=== PATIENT | female | born 1940 | race Caucasian/White ===

== ENCOUNTER 2017-02-21 17:45 | Emergency (ER) | payer MEDICARE, MEDICAID ==
--- NOTE | 2017-02-21 18:22 | ED Physician Chart ---
Chief Complaint/HPI - Patient Information Date Seen:: 02/21/17 Time Seen:: 18:18 Chief Complaint:: cough History of Present Illness:: pt sent from [place] for uri sx w cough x 1 wk. much worse today w feeling sob. nonproductive cough. low grade fever noted today. no edema. no leg pains. hears crackles in lungs w deep breathing. no cp. Allergies:: Allergies Allergy/AdvReac Type Severity Reaction Status Date / Time codeine Allergy Verified 06/15/16 17:17 erythromycin base Allergy Verified 06/15/16 17:18 hydrocodone bitartrate Allergy Verified 06/15/16 17:08 [From Vicodin] SULFA Allergy Unknown Uncoded 06/15/16 17:07 Vitals:: Vital Signs - 8 hr 02/21/17 17:51 Temp 97.7 F HR 82 RR 17 BP 121/60 O2 Sat % 95 Historian:: Patient Review of Systems - Review of Systems General/Constitutional: No fever, No chills, No weight loss, No weakness, No diaphoresis, No edema, No loss of appetite Skin: No skin lesions, No rash, No bruising Head: No headache, No light-headedness Eyes: No loss of vision, No pain, No diplopia ENT: No earache, No nasal drainage, No sore throat, No tinnitus Neck: No neck pain, No swelling, No thyromegaly, No stiffness, No mass noted Cardio Vascular: No chest pain, No palpitations, No PND, No orthopnea, No edema Pulmonary: SOB, Cough, No sputum, No wheezing GI: No nausea, No vomiting, No diarrhea, No pain, No melena, No hematochezia, No constipation, No hematemesis G/U: No dysuria, No frequency, No hematuria Musculoskeletal: No bone or joint pain, No back pain, No muscle pain Endocrine: No polyuria, No polydipsia Psychiatric: No prior psych history, No depression, No anxiety, No suicidal ideation Hematopoietic: No bruising, No lymphadenopathy Allergic/Immuno: No urticaria, No angioedema Neurological: No syncope, No focal symptoms, No weakness, No paresthesia, No headache, No seizure, No dizziness, No confusion, No vertigo Past Medical History - Past Medical History Past Medical History: HTN, Arthritis Surgical History: other (colostomy, martinez) Medication: Reviewed Family Medical History - Family Member Mother History Unknown: Yes Ethnicity: Unknown Living Status: Father History Unknown: Yes Ethnicity: Non- Living Status: Physical Exam - Physical Examination General/Constitutional: Awake, Well-developed, well-nourished, Alert, No distress, GCS 15, Non-toxic appearing, Ambulatory Head: Atraumatic Eyes: Lids, conjuctiva normal, PERRL, EOMI Skin: Nl inspection, No rash, No skin lesions, No ecchymosis, Well hydrated, No lymphadenopathy ENMT: External ears, nose nl, Nasal exam nl, Lips, teeth, gums nl Neck: Nontender, Full ROM w/o pain, No JVD, No nuchal rigidity, No bruit, No mass, No stridor Respiratory: Nl effort/Exclusion, Clear to Auscultation, No Wheeze/Rhonchi/Rales Other Respiratory comments:: lungs mostly clear...slt rales. speaking easily without sev dyspnea. Cardio Vascular: RRR, No murmur, gallop, rubs, NL S1 S2 GI: No tenderness/rebounding/guarding, No organomegaly, No hernia, Normal BS's, Nondistended, No mass/bruits, No McBurney tenderness : No CVA tenderness Extremities: No tenderness or effusion, Full ROM, normal strength in all extremities, No edema, Normal digits & nails Neuro/Psych: Alert/oriented, DTR's symmetric, Normal sensory exam, Normal motor strength, Judgement/insight normal, Mood normal, Normal gait, No focal deficits Misc: normal gait, Normal back, No paraspinal tenderness Labs/Radiology/EKG Results - Lab Results Results: Laboratory Tests 02/21/17 02/21/17 02/21/17 19:50 19:50 19:50 WBC 9.1 RBC 3.18 L Hgb 9.5 L Hct 28.5 L MCV 89.4 MCH 29.7 MCHC Differential 33.2 RDW 14.2 Plt Count 297 D MPV 7.1 Neutrophils % 80.3 H Lymphocytes % 13.1 L Monocytes % 5.2 Eosinophils % 0.3 Basophils % 1.1 Sodium 133 L Potassium 3.8 Chloride 100 Carbon Dioxide 23.7 Anion Gap 13.1 BUN 42 H Creatinine 2.5 H Est GFR ( Amer) TNP Est GFR (Non-Af Amer) TNP BUN/Creatinine Ratio 16.8 Glucose 110 H Whole Bld Lactic Acid 0.96 Calcium 9.4 Total Bilirubin 0.5 AST 23 ALT 22 Alkaline Phosphatase 52 Total Protein 8.0 Albumin 3.8 Globulin 4.2 Albumin/Globulin Ratio 0.9 L - Radiology Results Results: cxr nad...x ?slt inc in interstitial markings - EKG Interpretations EKG Time:: 18:50 Rate & Rhythm: nsr [place]ley: -42 Intervals: [id number] Comments:: lvh w repol delay. ED Septic Shock - . Is Septic Shock (SBP<90, OR Lactate>4 mmol\L) present?: No - <6hrs of presentation: Vital Signs: Vital Signs - 8 hr 02/21/17 17:51 Temp 97.7 F HR 82 RR 17 BP 121/60 O2 Sat % 95 Reassessment (Disposition) - Reassessment Reassessment:: case dw dr garcia...says pt can go back to [place] and he will call her abx orders over there. pt has appeared to be stable in ed here. not sob. no major cough or distress. has received abx and dr fara boles cont in [place]. Reassessment Condition:: Unchanged - Diagnosis Diagnosis:: 1 bronchitis 2 ckd 3 anemia - Aftercare/Follow up Instructions Aftercare/Follow-Up Instructions:: Counseled pt regarding lab results/diagnosis & need follow up - Patient Disposition Discharge/Transfer:: Residential/Boarding Care Condition at Disposition:: Improved
[2017-02-21 19:06] LABS: % BASOPHILS 1.1 % (0.0-2.0); % EOSINOPHILS 0.3 % (0.0-5.0); % LYMPHOCYTES 13.1 % (20.0-50.0); % MONOCYTES 5.2 % (2.0-10.0); % NEUTROPHILS 80.3 % (40.0-80.0); HEMATOCRIT 28.5 % (35.0-45.0); HEMOGLOBIN 9.5 gm/dL (11.7-16.1); MEAN CELL VOLUME 89.4 fl (81-100); MEAN CORPUSCULAR HEMOGLOBIN 29.7 pg (27.0-31.0); MEAN CORPUSCULAR HGB CONC 33.2 pg (28.0-36.0); MEAN PLATELET VOLUME 7.1 fl; NEUTROPHILE ABSOLUTE 7.3 Th/cmm (1.8-8.0); RED BLOOD COUNT 3.18 Mil/cmm (3.80-5.20); RED CELL DISTRIBUTION WIDTH 14.2 % (11.5-20.0); WHITE BLOOD COUNT 9.1 Th/cmm (4.8-10.8)
[2017-02-21 20:26] LABS: PLATELET COUNT 297 Th/cmm (150-400)
[2017-02-21 20:29] LABS: ALB/GLOB RATIO 0.9 (1.0-1.8); ALKALINE PHOSPHATASE 52 U/L (34-104); ANION GAP 13.1 (7.0-16.0); BILIRUBIN,TOTAL 0.5 mg/dL (0.3-1.0); BUN - UREA NITROGEN 42 mg/dL (7-25); BUN/CREATININE RATIO 16.8; CALCIUM SERUM 9.4 mg/dL (8.6-10.3); CARBON DIOXIDE 23.7 mEq/L (21.0-31.0); CHLORIDE 100 mEq/L (98-107); CREATININE - SERUM 2.5 mg/dL (0.6-1.2); GLUCOSE 110 mg/dL (70-105); POTASSIUM SERUM 3.8 mEq/L (3.5-5.1); SGOT 23 U/L (13-39); SGPT/ALT 22 U/L (7-52); SODIUM SERUM 133 mEq/L (136-145)
[2017-02-21] MEDS ORDERED: Albuterol Nebulizer 2.5mg/3mL HHN STA (20:54)
[2017-02-21] MEDS ORDERED: Levofloxacin 500mg/100mL 500 MG/100 ML BAG IV ONE ×2 (20:55→21:38)
[2017-02-21] MEDS ORDERED: Albuterol Nebulizer 2.5mg/3mL HHN ONE (21:48)
--- NOTE | 2017-02-22 11:41 | Diagnostic Imaging Report ---
Portable chest x-ray HISTORY: Cough The overall heart size is difficult to assess with portable technique and a poor inspiration. Atherosclerotic calcification seen in the aortic arch. No acute focal pulmonary processes. Degenerative changes seen to the spine. IMPRESSION: 1. No acute focal pulmonary processes 2. Atherosclerotic vascular changes
== END 2017-02-21 23:20 ==
LOC: ER 17:45
DX: J40 Bronchitis, not specified as acute or chronic (principal); I12.9 Hypertensive chronic kidney disease with stage 1 through stage 4 chronic kidney disease, or unspecified chronic kidney disease; N18.9 Chronic kidney disease, unspecified; D64.9 Anemia, unspecified; Z88.6 Allergy status to analgesic agent; Z88.1 Allergy status to other antibiotic agents; Z88.2 Allergy status to sulfonamides
CPT/HCPCS: 99285; 96365; 94640; 93005; 71010; 84484; 83880; 36415; 83605; 85025; 80053; 87081; 87040 ×2; J1956; J7613

== ENCOUNTER 2019-02-19 18:01 | Inpatient (IN) | payer MEDICARE, MEDICAID ==
--- NOTE | 2019-02-19 18:33 | ED Physician Chart ---
ED Chief Complaint/HPI - Patient Information Date Seen:: 02/19/19 Time Seen:: 18:15 Chief Complaint:: Fever History of Present Illness:: onset x 3 days of fever, congestion, S/T, and productive cough; pt denies trauma , H/As, neck pain, C/P, SOB, Abd. Pain, A/N/V/D/C, chills, or urinary s/s Allergies:: Allergies Allergy/AdvReac Type Severity Reaction Status Date / Time codeine Allergy Verified 02/19/19 18:16 erythromycin base Allergy Verified 02/19/19 18:16 hydrocodone bitartrate Allergy Verified 02/19/19 18:16 [From Vicodin] Sulfa (Sulfonamide Allergy Verified 02/19/19 18:16 Antibiotics) Historian:: Patient, EMS Review:: Nurse's Note Reviewed, Old Chart Reviewed, EMS run form Reviewed <Ken Loya - Last Filed: 02/19/19 18:27> - Patient Information Allergies:: Allergies Allergy/AdvReac Type Severity Reaction Status Date / Time codeine Allergy Verified 02/19/19 18:16 erythromycin base Allergy Verified 02/19/19 18:16 hydrocodone bitartrate Allergy Verified 02/19/19 18:16 [From Vicodin] Sulfa (Sulfonamide Allergy Verified 02/19/19 18:16 Antibiotics) Vitals:: Vital Signs - 8 hr 02/19/19 02/19/19 18:32 19:13 Temp 99.1 F 98.7 F HR 70 75 RR 18 16 BP 115/58 134/52 O2 Sat % 92 95 <Ashlee Harper - Last Filed: 02/19/19 20:43> ED Review of Systems - Review of Systems General/Constitutional: Fever, No chills, No weight loss, No weakness, No diaphoresis, No edema, No loss of appetite Skin: No skin lesions, No rash, No bruising Head: No headache, No light-headedness Eyes: No loss of vision, No pain, No diplopia ENT: No earache, Nasal drainage, Sore throat, No tinnitus Neck: No neck pain, No swelling, No thyromegaly, No stiffness, No mass noted Cardio Vascular: No chest pain, No palpitations, No PND, No orthopnea, No edema Pulmonary: No SOB, Cough, No sputum, No wheezing GI: No nausea, No vomiting, No diarrhea, No pain, No melena, No hematochezia, No constipation, No hematemesis G/U: No dysuria, No frequency, No hematuria, No nacturia Medical Insurance Biller: No vaginal discharge, No abnormal vaginal bleed, No contraction Musculoskeletal: No bone or joint pain, No back pain, No muscle pain Endocrine: No polyuria, No polydipsia Psychiatric: No prior psych history, No depression, No anxiety, No suicidal ideation, No homicidal ideation, No auditory hallucination, No visual hallucination Hematopoietic: No bruising, No lymphadenopathy Allergic/Immuno: No urticaria, No angioedema Neurological: No syncope, No focal symptoms, No weakness, No paresthesia, No headache, No seizure, No dizziness, Confusion, No vertigo <Ken Loya - Last Filed: 02/19/19 18:27> ED Past Medical History - Past Medical History Obtainable: Yes Past Medical History: HTN, DM, CAD, CHF, Dyslipidemia, PUD/GERD, Arthritis, Dementia Family History: Diabetes Melitus, HTN Social History: Non Smoker, No Alcohol, No Drug Use, Surgical History: None Psychiatricy History: None Medication: Reviewed <Ken Loya - Last Filed: 02/19/19 18:27> Family Medical History - Family Member Mother History Unknown: Yes Ethnicity: Unknown Living Status: Father History Unknown: Yes Ethnicity: Non- Living Status: Hx Family Coronary Artery Disease: Yes <Ken Loya - Last Filed: 02/19/19 18:27> ED Physical Exam - Physical Examination General/Constitutional: Awake, Well-developed, well-nourished, Alert, No distress, GCS 15, Non-toxic appearing, Ambulatory Head: Atraumatic Eyes: Lids, conjuctiva normal, PERRL, EOMI Skin: Nl inspection, No rash, No skin lesions, No ecchymosis, Well hydrated, No lymphadenopathy ENMT: External ears, nose nl, TM canals nl, Nasal exam nl, Lips, teeth, gums nl , Tonsils nl Other ENMT comments:: Pharynx: Injected; + Nasal Congestion Neck: Nontender, Full ROM w/o pain, No JVD, No nuchal rigidity, No bruit, No mass, No stridor Respiratory: Nl effort/Exclusion Other Respiratory comments:: Lungs: + Rales and Rhonchi Cardio Vascular: RRR, No murmur, gallop, rubs, NL S1 S2, Carotid/Femoral/Distal pulses equal bilaterally GI: No tenderness/rebounding/guarding, No organomegaly, No hernia, Normal BS's, Nondistended, No mass/bruits, No McBurney tenderness : No CVA tenderness Extremities: No tenderness or effusion, Full ROM, normal strength in all extremities, No edema, Normal digits & nails Neuro/Psych: Alert/oriented, DTR's symmetric, Normal sensory exam, Normal motor strength, Judgement/insight normal, Mood normal, Normal gait, No focal deficits Misc: Normal back, No paraspinal tenderness <Ken Loya - Last Filed: 02/19/19 18:27> ED Labs/Radiology/EKG Results - Lab Results Results: Laboratory Tests 02/19/19 02/19/19 02/19/19 17:20 18:59 18:59 WBC 6.7 RBC 3.33 L Hgb 10.0 L Hct 29.2 L MCV 87.8 MCH 30.0 MCHC Differential 34.1 RDW 15.3 Plt Count 234 MPV 6.1 Neutrophils % 78.7 Lymphocytes % 17.1 L Monocytes % 3.7 Eosinophils % 0.1 Basophils % 0.4 PT 10.4 INR 1.00 PTT (Actin FS) 33.5 Sodium Potassium Chloride Carbon Dioxide Anion Gap BUN Creatinine Est GFR ( Amer) Est GFR (Non-Af Amer) BUN/Creatinine Ratio Glucose Whole Bld Lactic Acid Calcium Total Bilirubin AST ALT Alkaline Phosphatase Creatine Kinase Troponin I Total Protein Albumin Globulin Albumin/Globulin Ratio Urine Source [place] Urine Color YELLOW Urine Clarity HAZY Urine pH 5.5 Ur Specific [place] <= 1.005 Urine Protein TRACE Urine Glucose (UA) NEGATIVE Urine Ketones NEGATIVE Urine Blood SMALL H Urine Nitrate POSITIVE H Urine Bilirubin NEGATIVE Urine Urobilinogen 0.2 Ur Leukocyte Esterase MODERATE H Urine RBC 2-5 Urine WBC 6-10 H Ur Epithelial Cells MODERATE Urine Bacteria 3+ H 02/19/19 02/19/19 18:59 18:59 WBC RBC Hgb Hct MCV MCH MCHC Differential RDW Plt Count MPV Neutrophils % Lymphocytes % Monocytes % Eosinophils % Basophils % PT INR PTT (Actin FS) Sodium 132 L Potassium 4.0 Chloride 100 Carbon Dioxide 21.5 Anion Gap 14.5 BUN 51 H Creatinine 2.3 H Est GFR ( Amer) TNP Est GFR (Non-Af Amer) TNP BUN/Creatinine Ratio 22.2 Glucose 239 H Whole Bld Lactic Acid 1.51 Calcium 9.2 Total Bilirubin 0.7 AST 14 ALT 18 Alkaline Phosphatase 106 H Creatine Kinase 44 Troponin I 0.01 Total Protein 6.8 Albumin 3.8 Globulin 3.0 Albumin/Globulin Ratio 1.3 Urine Source Urine Color Urine Clarity Urine pH Ur Specific [place] Urine Protein Urine Glucose (UA) Urine Ketones Urine Blood Urine Nitrate Urine Bilirubin Urine Urobilinogen Ur Leukocyte Esterase Urine RBC Urine WBC Ur Epithelial Cells Urine Bacteria <Ashlee Harper - Last Filed: 02/19/19 20:43> ED Assessment - Assessment General Assessment: uti fever pt admitted under DR EDWARDS <Ashlee Harper - Last Filed: 02/19/19 20:43> ED Septic Shock - . Is Septic Shock (SBP<90, OR Lactate>4 mmol\L) present?: No <Ken Loya - Last Filed: 02/19/19 18:27> - . Is Septic Shock (SBP<90, OR Lactate>4 mmol\L) present?: No - <6hrs of presentation: Vital Signs: Vital Signs - 8 hr 02/19/19 02/19/19 18:32 19:13 Temp 99.1 F 98.7 F HR 70 75 RR 18 16 BP 115/58 134/52 O2 Sat % 92 95 <Ashlee Harper - Last Filed: 02/19/19 20:43> ED Reassessment (Disposition) - Reassessment Reassessment Condition:: Improved - Diagnosis Diagnosis:: Fever; Sore Throat; Pharyngitis; Congestion <Ken Loya - Last Filed: 02/19/19 18:27> - Reassessment Reassessment:: UTI FEVER - Patient Disposition Discharge/Transfer:: Acute Care w/in this hosp Admitted to:: Med/Surg Condition at Disposition:: Stable <Ashlee Harper - Last Filed: 02/19/19 20:43>
[2019-02-19] MEDS ORDERED: cefTRIAXone 1 GM in Sodium Chloride 0.9% 50 ML IV ONE (18:34)
[2019-02-19 19:01] LABS: % BASOPHILS 0.4 % (0.0-2.0); % EOSINOPHILS 0.1 % (0.0-5.0); % LYMPHOCYTES 17.1 % (20.0-50.0); % MONOCYTES 3.7 % (2.0-10.0); % NEUTROPHILS 78.7 % (40.0-80.0); HEMATOCRIT 29.2 % (41.0-60); LYMPHOCYTE ABSOLUTE 1.1 Th/cmm (1.5-3.0); MEAN CELL VOLUME 87.8 fl (81-100); MEAN CORPUSCULAR HGB CONC 34.1 pg (28.0-36.0); MONOCYTE ABSOLUTE 0.2 Th/cmm (0.3-1.0); NEUTROPHILE ABSOLUTE 5.4 Th/cmm (1.8-8.0); PLATELET COUNT 234 Th/cmm (150-400); RED BLOOD COUNT 3.33 Mil/cmm (3.80-5.20); RED CELL DISTRIBUTION WIDTH 15.3 % (11.5-20.0); WHITE BLOOD COUNT 6.7 Th/cmm (4.8-10.8)
[2019-02-19 19:15] LABS: ALB/GLOB RATIO 1.3 (1.0-1.8); ALBUMIN 3.8 gm/dL (3.7-5.3); ALKALINE PHOSPHATASE 106 U/L (34-104); ANION GAP 14.5 (7.0-16.0); BILIRUBIN,TOTAL 0.7 mg/dL (0.3-1.0); BUN - UREA NITROGEN 51 mg/dL (7-25); CALCIUM SERUM 9.2 mg/dL (8.6-10.3); CARBON DIOXIDE 21.5 mEq/L (21.0-31.0); CHLORIDE 100 mEq/L (98-107); CREATININE - SERUM 2.3 mg/dL (0.6-1.2); CREATININE KINASE 44 U/L (30-223); GLUCOSE 239 mg/dL (70-105); SGOT 14 U/L (13-39); SGPT/ALT 18 U/L (7-52); SODIUM SERUM 132 mEq/L (136-145); TOTAL PROTEIN,SERUM 6.8 gm/dL (6.0-8.3)
[2019-02-19 19:27] LABS: URINE SOURCE MIDSTREAM
[2019-02-19 19:29] LABS: URINE BILIRUBIN NEGATIVE (NEGATIVE); URINE BLOOD SMALL (NEGATIVE); URINE GLUCOSE (UA) NEGATIVE (NEGATIVE); URINE KETONE NEGATIVE (NEGATIVE); URINE LEUKOCYTE ESTERASE MODERATE (NEGATIVE); URINE MICROSCOPIC INDICATED? YES; URINE NITRATE POSITIVE (NEGATIVE); URINE PH 5.5 (4.6 - 8.0); URINE PROTEIN TRACE mg/dL (NEGATIVE); URINE UROBILINOGEN 0.2 E.U./dL (0.2 - 1.0)
[2019-02-19 19:48] LABS: URINE CLARITY HAZY (CLEAR); URINE COLOR YELLOW
[2019-02-19 19:52] LABS: URINE BACTERIA 3+ /hpf (NONE SEEN); URINE EPITHELIAL CELLS MODERATE /lpf (FEW)
[2019-02-19] MEDS ORDERED: Gentamicin 80 mg/2mL Vial ONE (22:32)
[2019-02-19] MEDS: D5-0.45NS 1,000 ML IV SCH (22:34)
[2019-02-19] MEDS: INSULIN LISPRO 100 UNIT/ML VIAL SUBQ SCH (22:35)
[2019-02-20 06:05] LABS: A1C 6.9 % (4.8-5.6)
[2019-02-20] MEDS ORDERED: Gentamicin 80 mg/2mL Vial ONE (06:25)
[2019-02-20] MEDS: INSULIN LISPRO 100 UNIT/ML VIAL SUBQ SCH ×4 (07:58→20:31)
--- NOTE | 2019-02-20 08:41 | Diagnostic Imaging Report ---
CHEST X-RAY: AP view INDICATION: pain COMPARISON: 08/30/2017 FINDINGS: There is elevation of the right hemidiaphragm. Increased interstitial lung markings are noted. Mild cardiomegaly is noted with atherosclerosis. Degenerative changes of the spine are noted. There may have been old trauma to the left distal clavicle. IMPRESSION: Increased interstitial lung markings which may be chronic, however, interstitial infiltrates cannot be completely excluded please correlate clinically. Mild cardiomegaly and atherosclerosis.
[2019-02-20] MEDS ORDERED: Maalox 30 mL Cup PO PRN (09:31)
[2019-02-20] MEDS: Aspirin 81mg Chewable Tab PO SCH (10:23)
--- NOTE | 2019-02-20 10:28 | History & Physical ---
ADMIT DATE: PATIENT IDENTIFICATION: This is a 78-year-old female. CHIEF COMPLAINT: High-grade fever and chills with excessive sweating. HISTORY OF PRESENT ILLNESS: A 78-year-old female who resides at a halfway, has a history of type 2 diabetes, hypertension, chronic kidney disease, history of colostomy, history of previous bladder repair, psychotic disorder, has been followed by myself and psychiatrist at [facility], brought into the Emergency Room yesterday for evaluation of high-grade fever with chills and diaphoresis. The patient was worked up in the Emergency Room and noted to have urinary tract infection. The patient was also noted to have significant amount of sediments in her urine. The patient was advised to be admitted in the hospital for further evaluation and management. The patient stated that she is feeling a little better, but still feeling lethargic, more than usual. PAST MEDICAL HISTORY: Remarkable for: 1. Diabetes mellitus. 2. Hypertension. 3. Hyperlipidemia. 4. Chronic kidney disease. 5. DJD. 6. Status post colostomy. 7. History of recurrent urinary tract infection. 8. Neurogenic bladder. MEDICATIONS: Medications at the time of transfer has been reviewed and reconciled appropriately. ALLERGIES: The patient is allergic to CODEINE, ERYTHROMYCIN, HYDROCODONE, and SULFA. SOCIAL HISTORY: The patient resides in a halfway. The patient has no history of smoking cigarette, alcohol, or drug use. FAMILY MEDICAL HISTORY: Remarkable for diabetes. REVIEW OF SYSTEMS: The patient currently denies any headache, blurred vision, double vision, dysphagia, odynophagia, runny nose, stuffy nose, fevers or chills. No history of any abdominal pain. No history of any nausea, vomiting, diarrhea, dysuria, hematuria, hematochezia, melena. No history of any seizure or syncopal episode. PHYSICAL EXAMINATION: GENERAL: The patient is alert, awake, oriented, lying in the bed without any acute distress. VITAL SIGNS: T-max is 101.5, pulse is 100, respiratory rate is 18, blood pressure 140/70. HEENT: Normocephalic, atraumatic. Extraocular muscles are intact. Tongue was pink and coated. Poor dentition noted. Upper and lower dentures noted. NECK: Supple, no JVD, no hepatojugular reflux. No lymphadenopathy, no thyromegaly, no carotid bruit. HEART: Both heart sounds are regular. No S3, no S4, no murmur. CHEST: Lung equal in expansion, no expiratory wheezing. ABDOMEN: Soft. No guarding, no rigidity. Bowel sounds are regular. No palpable mass. Well-functioning colostomy in the left lower quadrant of the abdomen noted. EXTREMITIES: No edema, no cyanosis, no clubbing. Peripheral pulses are +1. No calf tenderness noted. NEUROLOGIC: Alert, awake and oriented to time, place, person. 2-12 cranial nerves are intact. Power in upper or lower extremities 5-. Sensory to touch intact. Babinskis in both toes are going down. No cerebral sign. AVAILABLE DIAGNOSTIC DATA: White count of 6.7, hemoglobin 10.0, platelet count of 234. Sodium 132, potassium 4.0, chloride 100, CO2 21.5, BUN and creatinine 51 and 2.3, glucose of 239, alkaline phos of 106. Urinalysis: Small blood, positive nitrites, positive leukoesterase, 6-10 wbc's, 3+ bacteria noted. Chest x-ray remarkable for no infiltrate, no congestion, mild cardiomegaly with atherosclerosis noted. CLINICAL IMPRESSION: 1. High-grade fever associated with chills and diaphoresis. Workup in the Emergency Room has revealed the patient has urinary tract infection. The patient has a chronic indwelling Tellez catheter for neurogenic bladder. The patient has most likely complicated urinary tract infection associated with Tellez catheter. In the view of her previous urinary tract infection, the patient needs to rule out for pyelonephritis. 2. [id number] kidney disease. 3. Diabetes mellitus. 4. Anemia of chronic illness. 5. Hypertension. 6. Hyperlipidemia. 7. Degenerative joint disease. 8. Psychotic disorder. 9. MULTIPLE MEDICATION ALLERGIES. 10. Neurogenic bladder. 11. Status post colostomy. PLAN: 1. Admit this patient to Med/Surg floor. 2. IV antibiotic with dual coverage. 3. Blood cultures. 4. Await for culture and sensitivity. 5. Renal ultrasound. 6. Infectious Disease consultation. 7. Appropriate home medicine reconciliation. 8. Diabetes management. 9. Symptoms management. 10. Medication management. 11. Follow category consultant's recommendation. 12. Tellez catheter care. 13. Colostomy care. 14. Care plan reviewed and discussed with staff. [facility]# [id number]
[2019-02-20] MEDS ORDERED: Non-Formulary Item 1 EA (Omeprazole [Omeprazole] 20 MG) PO SCH (11:30)
[2019-02-20] MEDS: Ferrous Sulfate 325 MG TAB PO SCH ×2 (13:12→20:19)
[2019-02-20] MEDS: Polyvinyl Alcohol Ophth Soln 15 mL Bottle EACH EYE SCH ×2 (13:12→20:26)
--- NOTE | 2019-02-20 14:26 | Diagnostic Imaging Report ---
Renal ultrasound HISTORY: pyelonephritis COMPARISON: CT abdomen and pelvis on 01/28/2015 and renal ultrasound on 01/27/2015 Technique: Sonography of the kidneys and urinary bladder was performed in multiple planes. FINDINGS: Exam is limited to body habitus. The right kidney measures 10.3 x 4.7 cm. The renal margins are not well-defined however no obvious focal lesions or hydronephrosis. The left kidney measures 10.1 x 4.6 cm. The renal margins are well-defined, however no obvious focal lesions are hydronephrosis. Tellez catheter is seen within the urinary bladder. There is subsequent complete voiding. IMPRESSION: Markedly limited exam due to body habitus. No evidence of hydronephrosis. Please also correlate with UA findings, given clinical history.
[2019-02-20] MEDS: D5-0.45NS 1,000 ML IV SCH (15:17)
[2019-02-20] MEDS: Timolol 0.25% Ophth Soln 5 mL Bottle EACH EYE SCH (16:42)
[2019-02-20] MEDS ORDERED: TIZANIDINE HCL 2 MG PO SCH (17:00)
[2019-02-20] MEDS: cefTRIAXone 1 GM in Sodium Chloride 0.9% 50 ML IV SCH (17:14)
[2019-02-20] MEDS: Atorvastatin Calcium 10 MG TAB PO SCH (20:20)
[2019-02-20] MEDS ORDERED: Non-Formulary Item 1 EA (Melatonin [Melatonin] 3 MG) PO SCH (21:00)
[2019-02-20] MEDS ORDERED: BISACODYL 5 MG PO SCH (21:00)
[2019-02-20 21:49] VITALS: BP 120/56
[2019-02-21] MEDS: D5-0.45NS 1,000 ML IV SCH ×2 (05:04→20:55)
[2019-02-21 05:34] LABS: HEMATOCRIT 28.6 % (41.0-60); HEMOGLOBIN 9.6 gm/dL (12-16); LYMPHOCYTE ABSOLUTE 0.3 Th/cmm (1.5-3.0); MEAN CELL VOLUME 88.2 fl (81-100); MEAN CORPUSCULAR HEMOGLOBIN 29.7 pg (27.0-31.0); MEAN CORPUSCULAR HGB CONC 33.7 pg (28.0-36.0); MONOCYTE ABSOLUTE 0.2 Th/cmm (0.3-1.0); NEUTROPHILE ABSOLUTE 5.3 Th/cmm (1.8-8.0); PLATELET COUNT 182 Th/cmm (150-400); RED BLOOD COUNT 3.24 Mil/cmm (3.80-5.20); RED CELL DISTRIBUTION WIDTH 15.2 % (11.5-20.0); WHITE BLOOD COUNT 5.8 Th/cmm (4.8-10.8)
[2019-02-21 05:52] LABS: ALB/GLOB RATIO 1.2 (1.0-1.8); ALBUMIN 3.4 gm/dL (3.7-5.3); ALKALINE PHOSPHATASE 99 U/L (34-104); ANION GAP 12.8 (7.0-16.0); BILIRUBIN,TOTAL 0.5 mg/dL (0.3-1.0); BUN - UREA NITROGEN 43 mg/dL (7-25); CALCIUM SERUM 8.9 mg/dL (8.6-10.3); CARBON DIOXIDE 21.6 mEq/L (21.0-31.0); CHLORIDE 103 mEq/L (98-107); CREATININE - SERUM 2.3 mg/dL (0.6-1.2); GLUCOSE 311 mg/dL (70-105); POTASSIUM SERUM 4.4 mEq/L (3.5-5.1); SGOT 20 U/L (13-39); SGPT/ALT 27 U/L (7-52); SODIUM SERUM 133 mEq/L (136-145); TOTAL PROTEIN,SERUM 6.2 gm/dL (6.0-8.3)
[2019-02-21 06:18] LABS: BAND NEUTROPHILE 0 % (0-10); NEUTROPHILS 91 % (40-80)
[2019-02-21 06:19] LABS: BASOPHIL 0 % (0-3); EOSINOPHIL 0 % (0-5); LYMPHOCYTE 7 % (20-50); MONOCYTE 2 % (2-10); PLATELET ESTIMATE ADEQUATE (NORMAL)
[2019-02-21] MEDS: INSULIN LISPRO 100 UNIT/ML VIAL SUBQ SCH ×4 (06:53→20:46)
[2019-02-21] MEDS: Polyvinyl Alcohol Ophth Soln 15 mL Bottle EACH EYE SCH ×3 (08:14→20:44)
[2019-02-21] MEDS: Pantoprazole 40 mg EC Tab PO SCH (08:15)
[2019-02-21] MEDS: Aspirin 81mg Chewable Tab PO SCH (08:15)
[2019-02-21] MEDS: Ferrous Sulfate 325 MG TAB PO SCH ×3 (08:15→20:43)
[2019-02-21] MEDS: Timolol 0.25% Ophth Soln 5 mL Bottle EACH EYE SCH ×2 (08:25→17:36)
[2019-02-21] MEDS ORDERED: SITAGLIPTIN PHOSPHATE 25 MG PO SCH (09:00)
[2019-02-21] MEDS ORDERED: Gentamicin 160 MG in Sodium Chloride 0.9% 100 ML IV ONE (11:00)
--- NOTE | 2019-02-21 16:39 | Progress Notes ---
DATE: 02/21/2019 IDENTIFICATION: A 78-year-old female. SUBJECTIVE: The patient seen and examined. The patient complained of left shoulder pain and feeling cold. The patient denies any chest pain, shortness of breath, palpitation. Still has some dysuria at times. Denies any seizure or syncopal episode. PHYSICAL EXAMINATION: VITAL SIGNS: Temperature 98, pulse is 76, respiratory rate 18, and blood pressure 126/74. HEENT: No facial asymmetry. Upper and lower dentures noted. NECK: Supple, no JVD. HEART: Regular. CHEST: Lungs equal in expansion, no expiratory wheezing. ABDOMEN: Soft, well-functioning colostomy in the left lower quadrant noted. Bowel sounds are present. EXTREMITIES: No edema. AVAILABLE DIAGNOSTIC DATA: BUN and creatinine are 43 and 2.3. White count of 5.8, hemoglobin 9.6, platelet count of 182. Blood cultures no growth for the next 24 hours. MRSA is negative. CLINICAL IMPRESSION: 1. Complicated urinary tract infection. 2. Fever, resolved. 3. Chronic kidney disease. 4. Diabetes mellitus. 5. Hypertension. 6. Glaucoma. 7. Degenerative joint disease. 8. Left shoulder pain secondary to rotator cuff tendonitis. 9. Psychotic disorder. 10. Glaucoma. PLAN: 1. IV antibiotic. 2. ID consult. 3. p.r.n. naproxen. 4. Monitor blood sugar. 5. Monitor blood pressure. 6. General nursing care. 7. Follow lab. 8. Follow workers compensation consultant's recommendation. 9. Start physical therapy. 10. Continue other medication as prescribed. 11. The patient has poor IV access. We will proceed with PICC line insertion. 12. Care plan reviewed with RN. JOB# [id number]
[2019-02-21] MEDS: cefTRIAXone 1 GM in Sodium Chloride 0.9% 50 ML IV SCH (17:42)
[2019-02-21] MEDS: Atorvastatin Calcium 10 MG TAB PO SCH (20:44)
[2019-02-22 05:12] LABS: % EOSINOPHILS 0.4 % (0.0-5.0); % LYMPHOCYTES 10.9 % (20.0-50.0); % MONOCYTES 5.4 % (2.0-10.0); % NEUTROPHILS 83.3 % (40.0-80.0); HEMATOCRIT 27.8 % (41.0-60); HEMOGLOBIN 9.4 gm/dL (12-16); LYMPHOCYTE ABSOLUTE 0.6 Th/cmm (1.5-3.0); MEAN CELL VOLUME 87.5 fl (81-100); MEAN CORPUSCULAR HEMOGLOBIN 29.5 pg (27.0-31.0); MEAN CORPUSCULAR HGB CONC 33.7 pg (28.0-36.0); MONOCYTE ABSOLUTE 0.3 Th/cmm (0.3-1.0); NEUTROPHILE ABSOLUTE 4.4 Th/cmm (1.8-8.0); PLATELET COUNT 186 Th/cmm (150-400); RED BLOOD COUNT 3.18 Mil/cmm (3.80-5.20); RED CELL DISTRIBUTION WIDTH 14.5 % (11.5-20.0); WHITE BLOOD COUNT 5.3 Th/cmm (4.8-10.8)
[2019-02-22 05:28] LABS: ALB/GLOB RATIO 1.3 (1.0-1.8); ALBUMIN 3.4 gm/dL (3.7-5.3); ALKALINE PHOSPHATASE 112 U/L (34-104); ANION GAP 12.9 (7.0-16.0); BILIRUBIN,TOTAL 0.5 mg/dL (0.3-1.0); BUN - UREA NITROGEN 44 mg/dL (7-25); CALCIUM SERUM 9.2 mg/dL (8.6-10.3); CARBON DIOXIDE 22.3 mEq/L (21.0-31.0); CHLORIDE 102 mEq/L (98-107); CREATININE - SERUM 2.3 mg/dL (0.6-1.2); GLUCOSE 269 mg/dL (70-105); POTASSIUM SERUM 4.2 mEq/L (3.5-5.1); SGOT 23 U/L (13-39); SGPT/ALT 33 U/L (7-52); SODIUM SERUM 133 mEq/L (136-145); TOTAL PROTEIN,SERUM 6.1 gm/dL (6.0-8.3)
[2019-02-22] MEDS: INSULIN LISPRO 100 UNIT/ML VIAL SUBQ SCH ×4 (06:58→20:56)
[2019-02-22] MEDS: Ferrous Sulfate 325 MG TAB PO SCH ×3 (08:30→20:35)
[2019-02-22] MEDS: Aspirin 81mg Chewable Tab PO SCH (08:31)
[2019-02-22] MEDS: Pantoprazole 40 mg EC Tab PO SCH (08:31)
[2019-02-22] MEDS: Timolol 0.25% Ophth Soln 5 mL Bottle EACH EYE SCH ×2 (08:32→16:56)
[2019-02-22] MEDS: Polyvinyl Alcohol Ophth Soln 15 mL Bottle EACH EYE SCH ×3 (08:32→22:47)
[2019-02-22] MEDS: D5-0.45NS 1,000 ML IV SCH ×2 (08:40→22:45)
--- NOTE | 2019-02-22 12:33 | Progress Notes ---
DATE: 02/22/2019 DATE OF SERVICE: 02/22/2019 This is coverage for Dr. Sukhi Queen. SUBJECTIVE: The patient is complaining of anxious in afternoon, wants to relax. Also taking Lantus 15 units once at night and wants to resume it as has not had it for 3 days. Case discussed with patient's RN and a Tellez catheter renewed. The patient remained afebrile. At present time, denies any headache, vision problem. No swelling problem. No chest pain or palpitations. No abdominal pain. No CVA tenderness. No UTI symptomatology. No hematuria. No leg swelling or joint swelling. Urine culture revealed Gram-negative bacteria more than 100,000 colonies, but ID is still pending. Currently on IV Rocephin and gentamicin. ALLERGIES: CODEINE, ERYTHROMYCIN, HYDROCODONE, AND SULFA. SOCIAL HISTORY: Noncontributory. OBJECTIVE: VITAL SIGNS: Temperature 98, pulse 77, respiratory rate 18, blood pressure 110/45, oxygen saturation on 2 liters 95%. HEENT: Unremarkable. No icterus and no pallor. Mucosa is moist. NECK: Supple. No JVD or lymphadenopathy. LUNGS: Clear. CARDIOVASCULAR: S1, S2 normal limits. No murmur, gallop, or bruit. ABDOMEN: Soft, obese, otherwise benign. No CVA tenderness. Tellez catheter, clear yellow urine. EXTREMITIES: No leg edema. LABORATORY DATA: Significant for urine culture Gram-negative bacteria,100,000 CFU/ML. WBC 5.3, hemoglobin 9.4, MCV 87, platelet count of 186,000, neutrophil 83%. Sodium 133, potassium 4.2, chloride 102, bicarbonate 32, BUN 44, creatinine 2.3, and a glucose of 269, calcium of 9.2. Liver panel is unremarkable. Albumin 3.4. Blood culture remained negative. ASSESSMENT AND PLAN: 1. Gram-negative bacilli complicated urinary tract infection in this patient with insulin-dependent diabetes mellitus with chronic kidney disease, stage IV. 2. Hypertension, currently stable. 3. Glaucoma. 4. Anxiety. 5. Anemia of chronic disease. We will continue with IV Rocephin and gentamicin and monitor culture and adjust antibiotic. Dr. Queen will follow the patient from 02/23/2019. JOB# [id number] [facility]
--- NOTE | 2019-02-22 15:57 | Consultation ---
Consult Note - Consult Note Service Date: 02/22/19 Referring Physician: Sukhi Queen Consult Note: PHYSICIAN Consultation Note: Date of Admission: 02/19/19 Purpose of Consultation: Sepsis. Chief Complaint: Patient KALEB YODER was admitted to location Medical/Surgical Unit I with FEVER, URINARY TRACT INFECTION. History of Present Illness: 78-year-old DM2, HTN, Hyperlipidemia, brought from the SNF for fever, chills and diaphoresis. On initial evaluation,her temperature was 99.1F and WBC count was 6,700. UA showed pyuria and bacteriuria. Rocephin IV was started and ID consult was called for antibiotic management. Past Medical History: Diagnoses TYPE 2 DIABETES MELLITUS WITHOUT COMPLICATIONS (02/19/19) HYPERLIPIDEMIA, UNSPECIFIED (02/19/19) ESSENTIAL (PRIMARY) HYPERTENSION (02/19/19) HYPERTENSIVE CHRONIC KIDNEY DISEASE W STG 1-4/UNSP CHR KDNY (02/19/19) ACUTE KIDNEY FAILURE, UNSPECIFIED (02/19/19) CHRONIC KIDNEY DISEASE, UNSPECIFIED (02/19/19) URINARY TRACT INFECTION, SITE NOT SPECIFIED (02/19/19) WEAKNESS (02/19/19) Allergies Allergy/AdvReac Type Severity Reaction Status Date / Time codeine Allergy Verified 02/19/19 18:16 erythromycin base Allergy Verified 02/19/19 18:16 hydrocodone bitartrate Allergy Verified 02/19/19 18:16 [From Vicodin] Sulfa (Sulfonamide Allergy Verified 02/19/19 18:16 Antibiotics) Vital Signs Temp 98.7 F 02/22/19 15:25 Pulse 73 02/22/19 15:25 Resp 18 02/22/19 15:25 BP 119/48 02/22/19 15:25 Pulse Ox 95 02/22/19 15:25 Intake & Output 02/21/19 02/22/19 02/22/19 18:59 06:59 18:59 Intake Total 3450 881.25 Output Total 2 1800 Balance 3448 -1800 881.25 Weight (lbs) 77.111 kg 77.111 kg Intake: Intake, IV Amount 1050 881.25 D5-0.45NS 1,000 ml @ 75 1000 881.25 mls/hr IV .[id number] [facility] Rx #:[id number] cefTRIAXone 1 gm In 50 Sodium Chloride 0.9% 50 ml @ 100 mls/hr IV Q24HR [facility] Rx#:[id number] Oral 2400 Output: Urine 1800 Stool 2 Other: # Voids 2,650 Stool Characteristics Soft Soft Soft Formed Formed Formed Brown Black [facility] Results - last 24 hr 02/21/19 02/21/19 02/22/19 17:14 20:21 05:04 WBC 5.3 RBC 3.18 L Hgb 9.4 L Hct 27.8 L MCV 87.5 MCH 29.5 MCHC Differential 33.7 RDW 14.5 Plt Count 186 MPV 6.3 Neutrophils % 83.3 H Lymphocytes % 10.9 L Monocytes % 5.4 Eosinophils % 0.4 Basophils % 0.0 Sodium Potassium Chloride Carbon Dioxide Anion Gap BUN Creatinine Est GFR ( Amer) Est GFR (Non-Af Amer) BUN/Creatinine Ratio Glucose POC Glucose 217 H 236 H Calcium Total Bilirubin AST ALT Alkaline Phosphatase Total Protein Albumin Globulin Albumin/Globulin Ratio 02/22/19 02/22/19 02/22/19 05:04 05:31 11:16 WBC RBC Hgb Hct MCV MCH MCHC Differential RDW Plt Count MPV Neutrophils % Lymphocytes % Monocytes % Eosinophils % Basophils % Sodium 133 L Potassium 4.2 Chloride 102 Carbon Dioxide 22.3 Anion Gap 12.9 BUN 44 H Creatinine 2.3 H Est GFR ( Amer) TNP Est GFR (Non-Af Amer) TNP BUN/Creatinine Ratio 19.1 Glucose 269 H POC Glucose 259 H 241 H Calcium 9.2 Total Bilirubin 0.5 AST 23 ALT 33 Alkaline Phosphatase 112 H Total Protein 6.1 Albumin 3.4 L Globulin 2.7 Albumin/Globulin Ratio 1.3 Home Medication Medication Instructions Recorded Type Ascorbic Acid [Vitamin C] 500 mg PO DAILY tab 09/03/17 Rx Aspirin [Aspirin Chewable] 81 mg PO DAILY ctb 09/03/17 Rx Cholecalciferol (Vit D3) [Vitamin 2,000 iu PO DAILY tab 09/03/17 Rx D3] Digoxin [Lanoxin] 0.125 mg PO DAILY tab 09/03/17 Rx Glimepiride [Amaryl*] 1 mg PO BID tab 09/03/17 Rx Magnesium Oxide [Mag-Oxide] 400 mg PO TID tab 09/03/17 Rx Metoprolol Tartrate [Lopressor] 25 mg PO BID tab 09/03/17 Rx Timolol 0.25% Ophth Soln [Timoptic 1 drop EACH EYE BID drops 09/03/17 Rx 0.25% Ophth Soln] Acetaminophen [Tylenol] 650 mg PO Q6HR PRN 02/19/19 History Atorvastatin Calcium [Lipitor] 20 mg PO HS 02/19/19 History Bisacodyl [Topcare Laxative] 5 mg PO HS 02/19/19 History Cranberry Fruit Extract [Cran-Max] 500 mg PO DAILY 02/19/19 History Ferrous Sulfate [Iron] 325 mg PO TID 02/19/19 History Insulin Aspart Sliding Scale See Protocol SUBQ ACHS 02/19/19 History [NovoLOG INSULIN SLIDING SCALE] Latanoprost 0.005% Ophth Soln 1 drop EACH EYE HS 02/19/19 History [Xalatan 0.005% Ophth Soln] Lorazepam [Ativan] 0.25 mg PO BID PRN 02/19/19 History Mag Hydrox/Al Hydrox/Simeth 30 ml PO Q6H PRN 02/19/19 History [Alum-Mag Hydroxide-Simeth Liq] Melatonin 3 mg PO HS 02/19/19 History Omeprazole 20 mg PO AC 02/19/19 History Polyvinyl Alcohol Ophth Soln 1 drop EACH EYE TID 02/19/19 History [Artificial Tears Ophth Soln] Sitagliptin Phosphate [Januvia] 25 mg PO DAILY 02/19/19 History Tizanidine HCl [Zanaflex] 2 mg PO BID 02/19/19 History rOPINIRole HCL [Requip*] 0.25 mg PO HS 02/19/19 History Current Medications Generic Name Dose Route Start Last Admin Trade Name [facility] PRN Reason Stop Dose Admin Acetaminophen 650 mg 02/19/19 22:51 02/22/19 08:39 Tylenol PO 04/20/19 22:50 650 mg Q6H PRN Administration Pain or Fever >101 Acetaminophen 650 mg 02/20/19 09:31 Tylenol PO 04/21/19 09:30 Q6HR PRN Pain (Moderate) Al Hydrox/Mg Hydrox/Simethicone 30 ml 02/20/19 09:31 02/22/19 13:27 Maalox PO 04/21/19 09:30 30 ml Q6H PRN Administration Upset Stomach / Indigestion Alprazolam 0.25 mg 02/22/19 12:02 02/22/19 13:21 Xanax PO 04/23/19 12:01 0.25 mg Q8HR PRN Administration Agitation Protocol Artificial Tears 1 drop 02/20/19 14:00 02/22/19 13:27 Artificial Tears Ophth Soln EACH EYE 04/21/19 13:59 1 drop TID [facility] Administration Ascorbic Acid 500 mg 02/20/19 09:45 02/22/19 08:30 Vitamin C PO 04/21/19 09:44 500 mg DAILY [facility] Administration Aspirin 81 mg 02/20/19 09:45 02/22/19 08:31 Aspirin Chewable PO 04/21/19 09:44 81 mg DAILY [facility] Administration Atorvastatin Calcium 20 mg 02/20/19 21:00 02/21/19 20:44 Lipitor PO 04/21/19 20:59 20 mg HS [facility] Administration Protocol Bisacodyl 5 mg 02/20/19 10:05 Dulcolax 5 Mg Ec Tab PO 04/21/19 10:04 HS PRN Constipation Cholecalciferol 2,000 iu 02/21/19 09:00 02/22/19 08:30 Vitamin D3 PO 04/22/19 08:59 2,000 iu DAILY [facility] Administration Digoxin 0.125 mg 02/21/19 09:00 02/22/19 08:31 Lanoxin PO 04/22/19 08:59 0.125 mg DAILY [facility] Administration Ferrous Sulfate 325 mg 02/20/19 14:00 02/22/19 13:27 Iron PO 04/21/19 13:59 325 mg TID [facility] Administration Glimepiride 1 mg 02/20/19 17:00 02/22/19 08:31 Amaryl PO 04/21/19 16:59 1 mg BID [facility] Administration Ceftriaxone Sodium 1 gm/ 50 mls @ 100 mls/hr 02/20/19 18:00 02/21/19 18:12 Sodium Chloride IV 04/21/19 17:59 Infused Q24HR [facility] Infusion Dextrose/Sodium Chloride 1,000 mls @ 75 mls/hr 02/19/19 21:00 02/22/19 08:40 D5-0.45ns IV 04/20/19 20:59 75 mls/hr .[id number] [facility] Administration Insulin Glargine 15 units 02/22/19 21:00 Lantus Insulin SUBQ 04/23/19 20:59 HS [facility] Insulin Human Lispro 0 unit 02/19/19 21:00 02/22/19 11:43 Humalog SUBQ 04/20/19 20:59 4 units ACHS [facility] Administration Protocol Latanoprost 1 drop 02/20/19 21:00 02/21/19 20:44 Xalatan 0.005% Ophth Soln EACH EYE 04/21/19 20:59 1 drop HS [facility] Administration Lorazepam 0.25 mg 02/20/19 09:31 02/21/19 15:32 Ativan PO 04/21/19 09:30 0.25 mg BID PRN Administration Anxiety Protocol Magnesium Oxide 400 mg 02/20/19 14:00 02/22/19 13:27 Mag-Oxide PO 04/21/19 13:59 400 mg TID [facility] Administration Metoprolol Tartrate 25 mg 02/20/19 17:00 02/22/19 08:31 Lopressor PO 04/21/19 16:59 25 mg BID [facility] Administration Miscellaneous 1 ea 02/19/19 20:46 Gentamicin Iv Per Pharmacy 04/20/19 20:45 PRN PRN PROTOCOL Naproxen 500 mg 02/21/19 08:58 Naprosyn PO 04/22/19 17:59 BIDWM PRN pain Pantoprazole Sodium 40 mg 02/21/19 09:00 02/22/19 08:31 Protonix PO 04/22/19 08:59 40 mg DAILY [facility] Administration Ropinirole HCl 0.25 mg 02/20/19 21:00 02/21/19 20:44 Requip PO 04/21/19 20:59 0.25 mg HS [facility] Administration Sitagliptin Phosphate 25 mg 02/21/19 09:00 02/22/19 08:30 Januvia PO 04/22/19 08:59 25 mg DAILY [facility] Administration Timolol Maleate 1 drop 02/20/19 17:00 02/22/19 08:32 Timoptic 0.25% Ophth Soln EACH EYE 04/21/19 16:59 1 drop BID [facility] Administration Tizanidine HCl 2 mg 02/20/19 17:00 02/22/19 09:55 Zanaflex PO 04/21/19 16:59 2 mg BID [facility] Administration Review of Systems: A 12 point ROS was reviewed with the pertinent positive and negatives noted in the HPI. Social History Smoking Status Unknown if ever smoked Family Medical History Family Medical History Start: 02/19/19 21: 38 Freq: ONCE Status: Active Protocol: Document 02/19/19 21:38 DARIN (Rec: 02/20/19 00:34 DARIN [id number]) Family Medical History Father History Unknown Yes Physical Exam: General: Comfortable, not in any distress. HEENT: HEAD: NC NT. Oral cavity: moist and pink tongue. EYES: Pallor, no icterus./ Neck: Supple, no JVD, no carotid bruit, Cardio: S1 and S2 WNL. Respiratory: CTAP. Abdominal: Soft NTND BS present Genital/Urinary: Extremities: NCCE Neurological: AAOx3. Assessment: 1. Fever 2/2 UTI. 2. UTI Ecoli. 3. DM2. 4. HTN. 5. Hyperlipidemia. Plan: Continue Rocephin IV, If she remains afebrile, may dc patient on oral antibiotics to suprax 400mg po daily for 5 more days. Thank you, Dr Queen for involving me in taking care of this patient. Signed, Rosas Vieira M.D. [id number]
[2019-02-22] MEDS: cefTRIAXone 1 GM in Sodium Chloride 0.9% 50 ML IV SCH (17:41)
[2019-02-22] MEDS: Atorvastatin Calcium 10 MG TAB PO SCH (20:34)
[2019-02-22] MEDS: Insulin Glargine 100 units/ml 10ml Vial SUBQ SCH (20:57)
[2019-02-23 05:16] LABS: % BASOPHILS 0.9 % (0.0-2.0); % EOSINOPHILS 0.1 % (0.0-5.0); % LYMPHOCYTES 10.8 % (20.0-50.0); % MONOCYTES 6.8 % (2.0-10.0); % NEUTROPHILS 81.4 % (40.0-80.0); HEMATOCRIT 27.1 % (41.0-60); HEMOGLOBIN 9.3 gm/dL (12-16); LYMPHOCYTE ABSOLUTE 0.5 Th/cmm (1.5-3.0); MEAN CELL VOLUME 87.3 fl (81-100); MEAN CORPUSCULAR HEMOGLOBIN 29.9 pg (27.0-31.0); MEAN CORPUSCULAR HGB CONC 34.2 pg (28.0-36.0); MONOCYTE ABSOLUTE 0.3 Th/cmm (0.3-1.0); PLATELET COUNT 196 Th/cmm (150-400); RED BLOOD COUNT 3.11 Mil/cmm (3.80-5.20); RED CELL DISTRIBUTION WIDTH 14.7 % (11.5-20.0); WHITE BLOOD COUNT 4.8 Th/cmm (4.8-10.8)
[2019-02-23] MEDS: INSULIN LISPRO 100 UNIT/ML VIAL SUBQ SCH ×4 (06:56→21:07)
[2019-02-23] MEDS: Pantoprazole 40 mg EC Tab PO SCH (08:42)
[2019-02-23] MEDS: Aspirin 81mg Chewable Tab PO SCH (08:42)
[2019-02-23] MEDS: Ferrous Sulfate 325 MG TAB PO SCH ×3 (08:43→20:32)
[2019-02-23] MEDS: Polyvinyl Alcohol Ophth Soln 15 mL Bottle EACH EYE SCH ×3 (08:50→20:33)
[2019-02-23] MEDS: Timolol 0.25% Ophth Soln 5 mL Bottle EACH EYE SCH ×2 (08:50→17:42)
[2019-02-23] MEDS: D5-0.45NS 1,000 ML IV SCH ×2 (13:00→20:34)
[2019-02-23] MEDS: Promethazine DM 6.25/15mg-5mL 5 ML SYR PO PRN (14:41)
--- NOTE | 2019-02-23 15:08 | Infectious Disease Prog Note ---
Infectious Disease Subjective - Review of Systems Service Date: 02/23/19 Subjective: There is no new change, no fever. Infectious Disease Objective - Results Result Diagrams: 02/23/19 05:05 02/23/19 05:05 Recent Labs: Laboratory Last Values WBC 4.8 Th/cmm (4.8-10.8) 02/23/19 05:05 RBC 3.11 Mil/cmm (3.80-5.20) L 02/23/19 05:05 Hgb 9.3 gm/dL (12-16) L 02/23/19 05:05 Hct 27.1 % (41.0-60) L 02/23/19 05:05 MCV 87.3 fl (81-100) 02/23/19 05:05 MCH 29.9 pg (27.0-31.0) 02/23/19 05:05 MCHC Differential 34.2 pg (28.0-36.0) 02/23/19 05:05 RDW 14.7 % (11.5-20.0) 02/23/19 05:05 Plt Count 196 Th/cmm (150-400) 02/23/19 05:05 MPV 6.3 fl 02/23/19 05:05 Add Manual Diff YES 02/21/19 05:20 Neutrophils % 81.4 % (40.0-80.0) H 02/23/19 05:05 Band Neutrophils % 0 % (0-10) 02/21/19 05:20 Lymphocytes % 10.8 % (20.0-50.0) L 02/23/19 05:05 Monocytes % 6.8 % (2.0-10.0) 02/23/19 05:05 Eosinophils % 0.1 % (0.0-5.0) 02/23/19 05:05 Basophils % 0.9 % (0.0-2.0) 02/23/19 05:05 Neutrophils (Manual) 91 % (40-80) H 02/21/19 05:20 Lymphocytes 7 % (20-50) L 02/21/19 05:20 Monocytes 2 % (2-10) 02/21/19 05:20 Eosinophils 0 % (0-5) 02/21/19 05:20 Basophils 0 % (0-3) 02/21/19 05:20 Platelet Estimate ADEQUATE (NORMAL) 05/24/19 05:20 PT 10.4 SECONDS (9.5-11.5) 02/19/19 18:59 INR 1.00 (0.5-1.4) 02/19/19 18:59 PTT (Actin FS) 33.5 SECONDS (26.0-38.0) 02/19/19 18:59 Sodium 133 mEq/L (136-145) L 02/23/19 05:05 Potassium 4.2 mEq/L (3.5-5.1) 02/23/19 05:05 Chloride 102 mEq/L (98-107) 02/23/19 05:05 Carbon Dioxide 23.1 mEq/L (21.0-31.0) 02/23/19 05:05 Anion Gap 12.1 (7.0-16.0) 02/23/19 05:05 BUN 42 mg/dL (7-25) H 02/23/19 05:05 Creatinine 2.2 mg/dL (0.6-1.2) H 02/23/19 05:05 Est GFR ( Amer) TNP 02/23/19 05:05 Est GFR (Non-Af Amer) TNP 02/23/19 05:05 BUN/Creatinine Ratio 19.1 02/23/19 05:05 Glucose 229 mg/dL (70-105) H 02/23/19 05:05 POC Glucose 288 MG/DL (70 - 105) H 02/23/19 12:20 Whole Bld Lactic Acid 1.51 mmol/L (0.60-1.99) 02/19/19 18:59 Calcium 9.2 mg/dL (8.6-10.3) 02/23/19 05:05 Total Bilirubin 0.5 mg/dL (0.3-1.0) 02/23/19 05:05 AST 22 U/L (13-39) 02/23/19 05:05 ALT 36 U/L (7-52) 02/23/19 05:05 Alkaline Phosphatase 112 U/L (34-104) H 02/23/19 05:05 Creatine Kinase 44 U/L (30-223) 02/19/19 18:59 Troponin I 0.01 ng/mL (0.01-0.05) 02/19/19 18:59 Total Protein 6.1 gm/dL (6.0-8.3) 02/23/19 05:05 Albumin 3.3 gm/dL (3.7-5.3) L 02/23/19 05:05 Globulin 2.8 gm/dL 02/23/19 05:05 Albumin/Globulin Ratio 1.2 (1.0-1.8) 02/23/19 05:05 Urine Source MIDSTREAM 02/19/19 17:20 Urine Color YELLOW 02/19/19 17:20 Urine Clarity HAZY (CLEAR) 02/19/19 17:20 Urine pH 5.5 (4.6 - 8.0) 02/19/19 17:20 Ur Specific [place] <= 1.005 (1.005-1.030) 02/19/19 17:20 Urine Protein TRACE mg/dL (NEGATIVE) 02/19/19 17:20 Urine Glucose (UA) NEGATIVE mg/dL (NEGATIVE) 02/19/19 17:20 Urine Ketones NEGATIVE mg/dL (NEGATIVE) 02/19/19 17:20 Urine Blood SMALL (NEGATIVE) H 02/19/19 17:20 Urine Nitrate POSITIVE (NEGATIVE) H 02/19/19 17:20 Urine Bilirubin NEGATIVE (NEGATIVE) 02/19/19 17:20 Urine Urobilinogen 0.2 E.U./dL (0.2 - 1.0) 02/19/19 17:20 Ur Leukocyte Esterase MODERATE (NEGATIVE) H 02/19/19 17:20 Urine RBC 2-5 /hpf (0-5) 02/19/19 17:20 Urine WBC 6-10 /hpf (0-5) H 02/19/19 17:20 Ur Epithelial Cells MODERATE /lpf (FEW) 02/19/19 17:20 Urine Bacteria 3+ /hpf (NONE SEEN) H 02/19/19 17:20 Gentamicin 1.1 ug/mL (0.5-10.0) 02/21/19 05:20 - Physical Exam Vitals and I&O: Vital Signs Temp 98.3 F 02/23/19 11:44 Pulse 70 02/23/19 11:44 Resp 16 02/23/19 14:04 BP 104/49 02/23/19 11:44 Pulse Ox 97 02/23/19 11:44 Intake & Output 0502/23/19 02/23/19 18:59 06:59 18:59 Intake Total 881.25 1000 1000 Balance 881.25 1000 1000 Intake: Intake, IV Amount 881.25 1000 1000 D5-0.45NS 1,000 ml @ 75 881.25 1000 1000 mls/hr IV .[id number] [facility] Rx #:[id number] Other: Stool Characteristics Soft Soft Soft Formed Formed Formed Brown Brown Black Black Black Green Active Medications: Current Medications Acetaminophen (Tylenol) 650 mg PO Q6H PRN PRN Reason: Pain or Fever >101 Stop: 04/20/19 22:50 Last Admin: 02/22/19 08:39 Dose: 650 mg Acetaminophen (Tylenol) 650 mg PO Q6HR PRN PRN Reason: Pain (Moderate) Stop: 04/21/19 09:30 Last Admin: 02/22/19 20:55 Dose: 650 mg Al Hydrox/Mg Hydrox/Simethicone (Maalox) 30 ml PO Q6H PRN PRN Reason: Upset Stomach / Indigestion Stop: 04/21/19 09:30 Last Admin: 02/22/19 13:27 Dose: 30 ml Albuterol/Ipratropium (Duoneb Neb) 3 ml HHN Q6HRT [facility] Stop: 04/24/19 18:59 Alprazolam (Xanax) 0.25 mg PO Q8HR PRN; Protocol PRN Reason: Agitation Stop: 04/23/19 12:01 Last Admin: 02/22/19 20:55 Dose: 0.25 mg Artificial Tears (Artificial Tears Ophth Soln) 1 drop EACH EYE TID [facility] Stop: 04/21/19 13:59 Last Admin: 02/23/19 13:05 Dose: 1 drop Ascorbic Acid (Vitamin C) 500 mg PO DAILY [facility] Stop: 04/21/19 09:44 Last Admin: 02/23/19 08:44 Dose: 500 mg Aspirin (Aspirin Chewable) 81 mg PO DAILY [facility] Stop: 04/21/19 09:44 Last Admin: 02/23/19 08:42 Dose: 81 mg Atorvastatin Calcium (Lipitor) 20 mg PO HS [facility]; Protocol Stop: 04/21/19 20:59 Last Admin: 02/22/19 20:34 Dose: 20 mg Bisacodyl (Dulcolax 5 Mg Ec Tab) 5 mg PO HS PRN PRN Reason: Constipation Stop: 04/21/19 10:04 Cholecalciferol (Vitamin D3) 2,000 iu PO DAILY [facility] Stop: 04/22/19 08:59 Last Admin: 02/23/19 08:41 Dose: 2,000 iu Digoxin (Lanoxin) 0.125 mg PO DAILY [facility] Stop: 04/22/19 08:59 Last Admin: 02/23/19 08:43 Dose: 0.125 mg Ferrous Sulfate (Iron) 325 mg PO TID [facility] Stop: 04/21/19 13:59 Last Admin: 02/23/19 13:00 Dose: 325 mg Glimepiride (Amaryl) 1 mg PO BID [facility] Stop: 04/21/19 16:59 Last Admin: 02/23/19 08:42 Dose: 1 mg Ceftriaxone Sodium 1 gm/ (Sodium Chloride) 50 mls @ 100 mls/hr IV Q24HR [facility] Stop: 04/21/19 17:59 Last Admin: 02/22/19 17:41 Dose: 100 mls/hr Dextrose/Sodium Chloride (D5-0.45ns) 1,000 mls @ 75 mls/hr IV .[id number] [facility] Stop: 04/20/19 20:59 Last Admin: 02/23/19 13:00 Dose: 75 mls/hr Insulin Glargine (Lantus Insulin) 15 units SUBQ HS [facility] Stop: 04/23/19 20:59 Last Admin: 02/22/19 20:57 Dose: 15 units Insulin Human Lispro (Humalog) 0 unit SUBQ [facility]; Protocol Stop: 04/20/19 20:59 Last Admin: 02/23/19 12:24 Dose: 6 units Latanoprost (Xalatan 0.005% Ophth Soln) 1 drop EACH EYE HS [facility] Stop: 04/21/19 20:59 Last Admin: 02/22/19 20:56 Dose: 1 drop Lorazepam (Ativan) 0.25 mg PO BID PRN; Protocol PRN Reason: Anxiety Stop: 04/21/19 09:30 Last Admin: 02/21/19 15:32 Dose: 0.25 mg Magnesium Oxide (Mag-Oxide) 400 mg PO TID [facility] Stop: 04/21/19 13:59 Last Admin: 02/23/19 13:00 Dose: 400 mg Metoprolol Tartrate (Lopressor) 25 mg PO BID [facility] Stop: 04/21/19 16:59 Last Admin: 02/23/19 08:43 Dose: 25 mg Miscellaneous (Gentamicin Iv Per Pharmacy) 1 ea [facility] PRN PRN PRN Reason: PROTOCOL Stop: 04/20/19 20:45 Naproxen (Naprosyn) 500 mg PO BIDWM PRN PRN Reason: pain Stop: 04/22/19 17:59 Pantoprazole Sodium (Protonix) 40 mg PO DAILY [facility] Stop: 04/22/19 08:59 Last Admin: 02/23/19 08:42 Dose: 40 mg Promethazine HCl/Dextromethorphan (Phenergan Dm 6.25/15mg-5 Ml) 5 ml PO Q6HR PRN PRN Reason: Cough Stop: 04/24/19 13:50 Last Admin: 02/23/19 14:41 Dose: 5 ml Ropinirole HCl (Requip) 0.25 mg PO HS [facility] Stop: 04/21/19 20:59 Last Admin: 02/22/19 20:54 Dose: 0.25 mg Sitagliptin Phosphate (Januvia) 25 mg PO DAILY [facility] Stop: 04/22/19 08:59 Last Admin: 02/23/19 08:43 Dose: 25 mg Timolol Maleate (Timoptic 0.25% Oph Soln) 1 drop EACH EYE BID [facility] Stop: 04/21/19 16:59 Last Admin: 02/23/19 08:50 Dose: 1 drop Tizanidine HCl (Zanaflex) 2 mg PO BID [facility] Stop: 04/21/19 16:59 Last Admin: 02/23/19 08:49 Dose: 2 mg General: no acute distress, well developed, well nourished HEENT: atraumatic, normocephalic, PERRLA Neck: supple, no thyromegaly Cardiovascular: S1S2, regular Lungs: clear to auscultation bilaterally, clear to percussion Abdomen: soft, no tender, no distended, no rebound Extremities: no cyanosis, no clubbing, no edema Neurological: awake, alert, oriented Skin: intact Infectious Disease Assmt/Plan - Assessment Assessment: 1. Fever 2/2 UTI. 2. UTI Ecoli. 3. DM2. 4. HTN. 5. Hyperlipidemia. - Plan Plan: Continue the same treatment. Nutritional Asmnt/Malnutr-PDOC - Dietary Evaluation Malnutrition Findings (Please click <Entered> for more info): Nutritional Asmnt/Malnutrition Start: 02/20/19 15: 28 Text: Status: Complete Freq: Protocol: Document 02/20/19 15:28 LCBRIANNEG (Rec: 02/20/19 15:34 LCBRIANNEG [email or web address]) Nutritional Asmnt/Malnutrition Patient General Information Nutritional Screening High Risk Diagnosis fever, UTI Pertinent Medical Hx/Surgical Hx HTN, DM, CAD, CHF, dyslipidemia, PUD/GERd, arthritis, dementia Subjective Information pt seen in bed, awake and alert. Pt stated she ate most of the breafkast this morning and the food is good. Food preference provided to RD. Pt understands diabetic diet and said that what she usually eat . Current Diet Order/ Nutrition Support [facility] Pertinent Medications vit C, lipitor, vit D3, D5-0. 45ns, iron, humalog, mag-oxide , protonix, januvia Pertinent Labs 02/19 Na 132, BUN 51, Cr 2.3, glucose 239, POC 211 02/20 POC 238, 192 Nutritional Hx/Data Height 1.8 m Height (Calculated Centimeters) 180.3 Current Weight (lbs) 77.111 kg Weight (Calculated Kilograms) 77.1 Weight (Calculated Grams) 34479.7 [place] Body Weight 155 Body Mass Index (BMI) 23.7 Weight Status Approriate GI Symptoms GI Symptoms None Last BM none Difficult in: None Skin Integrity/Comment: intact Current %PO Good (75-100%) Estimated Nutritional Goals BEE in Kcals: Using Current wt Calories/Kcals/Kg 25-30 Kcals Calculated 8753-6303 Protein: Using Current wt Protein g/k Protein Calculated 77 Fluid: ml 1925-2310ml (1ml/kcal) Nutritional Problem 1. Problem Problem altered nutrition related labs Etiology hyperglycemia Signs/Symptoms: glucose 239, POC 211-238 Malnutrition Alert Is there a minimum of two criteria No selected? Query Text:Check all the applicable criteria. A minimum of two criteria are recommended for diagnosis of either severe or non-severe malnutrition. Malnutrition Related to Morbid Obesity Malnutrition related to morbid obesity No Intervention/Recommendation Comments 1. Continue with [facility] diet as ordered. diet profile updated. MD to adjust insulin for optimal glycemic control. 2. Monitor PO intake, wt, labs and skin integrity 3. F/U as moderate risk in 3-5 days Expected Outcomes/Goals Expected Outcomes/Goals 1. PO intake to meet at least 75% of nutritional needs. 2. Wt stability, skin to remain intact, labs to approach WNL.
[2019-02-23] MEDS: cefTRIAXone 1 GM in Sodium Chloride 0.9% 50 ML IV SCH (17:41)
[2019-02-23] MEDS: Albuterol/Ipratropium Neb 3 ML AERS HHN SCH (18:46)
[2019-02-23] MEDS: Atorvastatin Calcium 10 MG TAB PO SCH (20:31)
[2019-02-23] MEDS: Insulin Glargine 100 units/ml 10ml Vial SUBQ SCH (21:08)
[2019-02-23 21:30] LABS: ALB/GLOB RATIO 1.2 (1.0-1.8); ALBUMIN 3.3 gm/dL (3.7-5.3); ANION GAP 12.1 (7.0-16.0); BUN - UREA NITROGEN 42 mg/dL (7-25); CALCIUM SERUM 9.2 mg/dL (8.6-10.3); CARBON DIOXIDE 23.1 mEq/L (21.0-31.0); CHLORIDE 102 mEq/L (98-107); CREATININE - SERUM 2.2 mg/dL (0.6-1.2); GLUCOSE 229 mg/dL (70-105); POTASSIUM SERUM 4.2 mEq/L (3.5-5.1); SODIUM SERUM 133 mEq/L (136-145); TOTAL PROTEIN,SERUM 6.1 gm/dL (6.0-8.3)
[2019-02-23 21:31] LABS: ALKALINE PHOSPHATASE 112 U/L (34-104); BILIRUBIN,TOTAL 0.5 mg/dL (0.3-1.0); SGOT 22 U/L (13-39); SGPT/ALT 36 U/L (7-52)
[2019-02-24] MEDS: Albuterol/Ipratropium Neb 3 ML AERS HHN SCH ×3 (00:44→13:07)
--- NOTE | 2019-02-24 03:49 | Progress Notes ---
DATE: PATIENT'S ID: This is a 78-year-old female. SUBJECTIVE: The patient seen and examined. The patient complained of cough and congestion. The patient denies any fever or chills. Denies any nausea or vomiting. PHYSICAL EXAMINATION: VITAL SIGNS: Temperature 98, pulse is 70, respiratory rate 18, blood pressure 104/49. HEENT: No facial asymmetry. NECK: Supple, no JVD. HEART: Regular. LUNGS: Expiratory wheezing. ABDOMEN: Soft. No guarding, rigidity, well-functioning colostomy noted. Bowel sounds are present. EXTREMITIES: No edema. NEUROLOGIC: Alert, awake, follows commands. AVAILABLE DIAGNOSTIC DATA: Has been reviewed. CLINICAL IMPRESSION: 1. Acute bronchitis with bronchospasm. 2. Complicated urinary tract infection. 3. Diabetes mellitus. 4. Chronic kidney disease. 5. Hypertension. 6. Psychotic disorder. 7. Degenerative joint disease. 8. Debility. PLAN: 1. Continue antibiotic. 2. Symptoms management. 3. Diabetes management. 4. General nursing care. 5. PT, OT. 6. Follow lab. 7. Nutritional support. 8. Chronic disease management. 9. Follow consult recommendation. 10. Care plan reviewed and discussed with staff. JOB# [id number]
[2019-02-24] MEDS: INSULIN LISPRO 100 UNIT/ML VIAL SUBQ SCH ×2 (06:53→12:10)
[2019-02-24] MEDS: Ferrous Sulfate 325 MG TAB PO SCH ×2 (08:28→13:38)
[2019-02-24] MEDS: Aspirin 81mg Chewable Tab PO SCH (08:28)
[2019-02-24] MEDS: Pantoprazole 40 mg EC Tab PO SCH (08:28)
[2019-02-24] MEDS: Polyvinyl Alcohol Ophth Soln 15 mL Bottle EACH EYE SCH ×2 (08:30→13:44)
[2019-02-24] MEDS: Timolol 0.25% Ophth Soln 5 mL Bottle EACH EYE SCH (08:30)
[2019-02-24] MEDS: Promethazine DM 6.25/15mg-5mL 5 ML SYR PO PRN ×2 (08:43→13:49)
[2019-02-24] MEDS ORDERED: Gentamicin 160 MG in Sodium Chloride 0.9% 100 ML IV SCH (14:00)
[2019-02-24] MEDS: D5-0.45NS 1,000 ML IV SCH (15:48)
--- NOTE | 2019-02-24 18:01 | Discharge Summary ---
DATE OF DISCHARGE: 02/24/2019 PATIENT'S IDENTIFICATION: A 78-year-old female. DISPOSITION: Discharged to [facility] on 02/24[facility]. PRINCIPAL DIAGNOSES: 1. Complicated Escherichia coli urinary tract infection secondary to Tellez catheter associated. 2. Neurogenic bladder. 3. Diabetes mellitus. 4. Hypertension. 5. Chronic kidney disease stage 3. 6. Degenerative joint disease. 7. Status post colostomy. 8. Psychotic disorder. 9. Anemia of chronic illness. 10. Debility. BRIEF STATEMENT FOR THE REASON FOR ADMISSION: A 78-[facility]-old resident of [facility] brought in to the Emergency Room for evaluation of high-grade fever, chills and increasing lethargy. The patient was evaluated and subsequently admitted to the hospital for further treatment. Please refer to my medical H and P for further information. HOSPITAL COURSE: The patient was admitted to Med/Surg floor. The patient was placed on IV Rocephin and gentamicin. Renal ultrasound was done, which did not reveal any hydronephrosis. Urine finding was consistent with UTI and culture did grow E. coli. The patient was also noted to have other medical problems which were addressed. The patient was seen by Infectious Disease as well. The patient was slowly improving. Though the patient had poor IV access, but somehow it was able to manage IV antibiotic. The patient was improving to the extent that the patient can be transferred to lower level of care. The patient was discharged to [facility] in stable condition. At the time of discharge, the patient's medication has been switched, IV Rocephin to p.o. Bactrim. The patient will be followed by myself and my nurse practitioner. At the time of discharge, all of her medications are reconciled. JOB# [id number]
== END 2019-02-24 17:45 | DRG 698 ==
LOC: ER 18:01 → MSI 20:50
PROVIDERS: ADMIT Internal Medicine; ATTEND Internal Medicine
DX: T83.511A Infection and inflammatory reaction due to indwelling urethral catheter, initial encounter (principal); N17.0 Acute kidney failure with tubular necrosis; I13.0 Hypertensive heart and chronic kidney disease with heart failure and stage 1 through stage 4 chronic kidney disease, or unspecified chronic kidney disease; N18.4 Chronic kidney disease, stage 4 (severe); N39.0 Urinary tract infection, site not specified; E78.5 Hyperlipidemia, unspecified; E11.22 Type 2 diabetes mellitus with diabetic chronic kidney disease; K21.9 Gastro-esophageal reflux disease without esophagitis; M19.90 Unspecified osteoarthritis, unspecified site; F03.90 Unspecified dementia, unspecified severity, without behavioral disturbance, psychotic disturbance, mood disturbance, and anxiety; I25.10 Atherosclerotic heart disease of native coronary artery without angina pectoris; D63.8 Anemia in other chronic diseases classified elsewhere; N31.9 Neuromuscular dysfunction of bladder, unspecified; H40.9 Unspecified glaucoma; M77.9 Enthesopathy, unspecified; I50.9 Heart failure, unspecified; F29 Unspecified psychosis not due to a substance or known physiological condition; F41.9 Anxiety disorder, unspecified; B96.20 Unspecified Escherichia coli [E. coli] as the cause of diseases classified elsewhere; J20.9 Acute bronchitis, unspecified; Y83.8 Other surgical procedures as the cause of abnormal reaction of the patient, or of later complication, without mention of misadventure at the time of the procedure; Y92.89 Other specified places as the place of occurrence of the external cause; Z88.5 Allergy status to narcotic agent; Z88.2 Allergy status to sulfonamides; Z83.3 Family history of diabetes mellitus; Z82.49 Family history of ischemic heart disease and other diseases of the circulatory system; Z79.4 Long term (current) use of insulin; Z93.3 Colostomy status; Z88.8 Allergy status to other drugs, medicaments and biological substances
CPT/HCPCS: 36415-UA; 71045-TC; 76770-TC; 80053-TC; 80170-TC; 81001-TC; 82550-TC; 82948-90; 83036-90; 83605; 84484-TC; 85007-TC; 85025-TC; 85610-TC; 85730-TC; 87086-90; 93005; 94640; 94760; J0696; J1580; J1815; Z7610